=== PATIENT | female | born 1985 | race American Indian/Alaskan Native ===

== ENCOUNTER 2018-08-22 23:33 | Emergency (ER) | payer BC, OTHER ==
[2018-08-23] MEDS ORDERED: TYLENOL PO ONE (01:13)
[2018-08-23] MEDS ORDERED: TYLENOL ONE (01:15)
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
[2018-08-23 02:26] VITALS: BP 110/44
== END 2018-08-23 02:28 | disposition home or self-care (01) ==
LOC: ED 23:33
DX: S01.81XA Laceration without foreign body of other part of head, initial encounter (principal); Z88.6 Allergy status to analgesic agent; W01.198A Fall on same level from slipping, tripping and stumbling with subsequent striking against other object, initial encounter; Y93.89 Activity, other specified; Y99.8 Other external cause status; Y92.89 Other specified places as the place of occurrence of the external cause
CPT/HCPCS: 99282

== ENCOUNTER 2019-04-11 15:27 | Emergency (ER) | payer OTHER ==
[2019-04-11 15:44] VITALS: BP 124/73
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
[2019-04-11 19:07] LABS: HCG Qualitative,Urine Negative (Negative)
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
[2019-04-11] MEDS ORDERED: KETOROLAC 30 MG/1 ML INJ IV ONE (20:38)
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
[2019-04-11 21:54] LABS: Basophils # (Auto) 0.1 K/mm3 (0.0-0.1); Basophils % (Auto) 0.6 % (0.0-1.8); Eosinophils # (Auto) 0.2 K/mm3 (0.0-0.4); Eosinophils % (Auto) 2.1 % (0.0-4.3); Hematocrit 39.6 % (30.3-42.9); Hemoglobin 13.4 gm/dl (10.1-14.3); Lymphocytes # (Auto) 3.4 K/mm3 (1.2-5.4); Lymphocytes % (Auto) 34.6 % (13.4-35.0); Mean Corpuscular HGB Conc 34 % (30-34); Mean Corpuscular Volume 96 fl (79-97); Monocytes # (Auto) 0.9 K/mm3 (0.0-0.8); Monocytes % (Auto) 9.2 % (0.0-7.3); Red Blood Count 4.12 M/mm3 (3.65-5.03); Red Cell Distribution Width 12.9 % (13.2-15.2)
[2019-04-11 21:57] LABS: Platelet Count 150 K/mm3 (140-440)
[2019-04-11 22:01] LABS: Alanine Aminotransferase 18 units/L (7-56); Albumin 4.1 g/dL (3.9-5); BUN/Creatinine Ratio 11; Blood Urea Nitrogen 8 mg/dL (7-17); Calcium 9.1 mg/dL (8.4-10.2); Hemolysis Index 6; INR 1.13 (0.87-1.13)
[2019-04-11 22:02] LABS: Partial Thromboplastin Time 40.8 Sec. (24.2-36.6)
== END 2019-04-11 22:36 | disposition home or self-care (01) ==
LOC: ED 15:27
DX: S30.1XXA Contusion of abdominal wall, initial encounter (principal); M25.512 Pain in left shoulder; R11.10 Vomiting, unspecified; Z88.6 Allergy status to analgesic agent; V89.2XXA Person injured in unspecified motor-vehicle accident, traffic, initial encounter; Y93.89 Activity, other specified; Y92.410 Unspecified street and highway as the place of occurrence of the external cause; Y99.8 Other external cause status
CPT/HCPCS: 36415; 72100; 73030; 74019; 74177; 80053; 81025; 85025; 85610; 85730; 96374; 99284; J1885; Q9967